=== PATIENT | female | born 1965 | race Caucasian/White ===

== ENCOUNTER → 2024-03-07 10:32 | Outpatient (REF) | payer OTHER, SELFPAY | LOC: RAD 10:32 | PROVIDERS: ATTENDING PHYSICIAN Nurse Practitioner; PRIMARYCARE PHYSICIAN Family Medicine | DX: R35.0 Frequency of micturition (principal); R10.0 Acute abdomen | CPT/HCPCS: 76770; 76856 ==

== ENCOUNTER 2024-06-23 08:03 | Outpatient (RCR) | payer OTHER, SELFPAY | END 2024-06-23 23:59 | disposition home or self-care (01) | LOC: RPT 08:03 | PROVIDERS: ATTENDING PHYSICIAN Nurse Practitioner; FAMILY PHYSICIAN Family Medicine | DX: R35.0 Frequency of micturition (principal); N30.10 Interstitial cystitis (chronic) without hematuria; R39.89 Other symptoms and signs involving the genitourinary system | CPT/HCPCS: 97162; 97530 ==

== ENCOUNTER 2024-07-27 11:53 | Outpatient (RCR) | payer OTHER, SELFPAY | END 2024-07-27 23:59 | disposition home or self-care (01) | LOC: RPT 11:53 | PROVIDERS: ATTENDING PHYSICIAN Nurse Practitioner; FAMILY PHYSICIAN Family Medicine | DX: R35.0 Frequency of micturition (principal); N30.10 Interstitial cystitis (chronic) without hematuria; R39.89 Other symptoms and signs involving the genitourinary system; Z73.6 Limitation of activities due to disability | CPT/HCPCS: 97110; 97112; 97140; 97530 ==

== ENCOUNTER 2024-08-11 12:58 | Outpatient (RCR) | payer OTHER, SELFPAY | END 2024-08-19 07:11 | disposition home or self-care (01) | LOC: RPT 12:58 | PROVIDERS: ATTENDING PHYSICIAN Nurse Practitioner; FAMILY PHYSICIAN Family Medicine | DX: R35.0 Frequency of micturition (principal); N30.10 Interstitial cystitis (chronic) without hematuria; R39.89 Other symptoms and signs involving the genitourinary system; Z73.6 Limitation of activities due to disability | CPT/HCPCS: 97112; 97530 ==

== ENCOUNTER → 2024-12-13 13:13 | Outpatient (REF) | payer OTHER, SELFPAY | LOC: WDC 13:13 | PROVIDERS: ATTENDING PHYSICIAN Internal Medicine Gastroenterology; FAMILY PHYSICIAN Family Medicine | DX: Z12.31 Encounter for screening mammogram for malignant neoplasm of breast (principal); R19.5 Other fecal abnormalities | CPT/HCPCS: 74018; 77063; 77067 ==

== ENCOUNTER 2025-01-05 06:21 | Day surgery (SDC) | payer OTHER, SELFPAY | END 2025-01-05 14:02 | disposition home or self-care (01) | LOC: GI 06:21 | PROVIDERS: ATTENDING PHYSICIAN Internal Medicine Gastroenterology | DX: Z12.11 Encounter for screening for malignant neoplasm of colon (principal); K57.30 Diverticulosis of large intestine without perforation or abscess without bleeding; K64.8 Other hemorrhoids; R19.7 Diarrhea, unspecified | CPT/HCPCS: 45380; 88305 ==

== ENCOUNTER → 2025-04-21 12:22 | Outpatient (REF) | payer OTHER, SELFPAY | LOC: HWRAD 12:22 | PROVIDERS: ATTENDING PHYSICIAN Nurse Practitioner Family; FAMILY PHYSICIAN Family Medicine | DX: E06.3 Autoimmune thyroiditis (principal) | CPT/HCPCS: 76536 ==